=== PATIENT | female | born 1960 | race African-American/Black ===

== ENCOUNTER 2018-07-12 21:48 | Emergency (ER) | payer SELFPAY ==
[~2018-07-12] VITALS: Ht 180.3 cm; Wt 103.0 kg
[2018-07-12 23:57] LABS: BASOPHILS % 0.4 % (0.0-2.0); EOSINOPHILS % 2.4 % (0.0-5.0); HEMOGLOBIN. 13.7 g/dL (12.0-16.0); LYMPHOCYTES % 23.5 % (20.0-50.0); MEAN CORPUSCULAR HEMOGLOBIN 31.3 pg (28.0-32.0); MEAN CORPUSCULAR VOLUME 91.3 fL (81.0-99.0); MEAN PLATELET VOLUME 8.3 fl (7.4-10.4); NEUTROPHILS % 68.7 % (40.0-76.0); PLATELET 195 x1000/uL (130-400); RED BLOOD CELL COUNT 4.39 mill/uL (4.2-5.4); RED CELL DISTRIBUTION WIDTH 13.3 % (11.6-14.6)
[2018-07-12 23:59] LABS: CHLORIDE 103 mEq/L (98-107)
[2018-07-13 00:02] LABS: ETHANOL BLOOD 273 mg/dL; HCG SCREEN NEGATIVE
[2018-07-13] MEDS ORDERED: POTASSIUM CHLORIDE 20MEQ TABLET SR PO NR (00:45)
[2018-07-13 03:58] VITALS: BP 145/76
== END 2018-07-13 03:59 | disposition home or self-care (01) ==
LOC: ER 21:48
DX: F10.129 Alcohol abuse with intoxication, unspecified (principal); L03.211 Cellulitis of face; E87.6 Hypokalemia; V49.88XA Car occupant (driver) (passenger) injured in other specified transport accidents, initial encounter; Y93.89 Activity, other specified; Y92.89 Other specified places as the place of occurrence of the external cause; Y99.8 Other external cause status; Y90.8 Blood alcohol level of 240 mg/100 ml or more
CPT/HCPCS: 36415; 70450; 70486; 80053; 84703; 85025; 99285; G0482